=== PATIENT | male | born 1975 | race Two or more races ===

== ENCOUNTER 2018-05-12 21:21 | Emergency (ER) | payer OTHER ==
[~2018-05-12] VITALS: Ht 175.3 cm; Wt 70.3 kg
--- NOTE | 2018-05-12 21:50 | NUR ---
BIBRA FROM HOME C/O FEELING LIGHTHEADED AND NUMBNESS ON RIGHT ARM S/P USING COCAINE X2HR DRAW END HAND. BS 100. PT AAOX4, VSS. PT STS " I FEEL MUCH BETTER NOW ". DENIES CP, SOB, DIZZINESS, LIGHTHEADEDNESS, NUMBNESS/TINGLING SENSATION ON ALL EXTREMITIES. AWAITING EVAL BY ERMD & WILL CONT TO MONITOR.
[2018-05-12 23:07] LABS: BASOPHILS % (AUTO) 0.5 % (0.0-2.0); CALCIUM, SERUM 9.5 mg/dL (8.5-10.1); CARBON DIOXIDE 27 mmol/L (21-32); CHLORIDE 99 mmol/L (98-107); EOSINOPHILS % (AUTO) 3.9 % (0.0-6.0); GLUCOSE 107 mg/dL (74-106); HEMATOCRIT 43 % (39-51); HEMOGLOBIN 14.7 g/dL (13.5-17.5); LYMPHOCYTES # (AUTO) 0.6 /CMM (0.8-4.8); LYMPHOCYTES % (AUTO) 15.3 % (20.0-44.0); MEAN CORPUSCULAR HGB CONC 34 g/dl (31.0-36.0); MEAN CORPUSCULAR VOLUME 100 fL (80-96); MONOCYTES # (AUTO) 0.7 /CMM (0.1-1.30); MONOCYTES % (AUTO) 18.1 % (2.0-12.0); NEUTROPHILS # (AUTO) 2.4 /CMM (1.8-8.9); NEUTROPHILS % (AUTO) 62.2 % (43.0-81.0); PLATELET COUNT (AUTO) 222 /CMM (150-450); POTASSIUM 4.7 mmol/L (3.5-5.1); RED BLOOD CELL COUNT(AUTO) 4.32 MIL/uL (4.5-6.0); SODIUM SERUM 134 mmol/L (136-145); UREA NITROGEN, BLOOD 30 mg/dL (7-18); WHITE BLOOD COUNT (AUTO) 3.9 K/uL (4.3-11.0)
[2018-05-12 23:51] LABS: LYMPHOCYTES % (MANUAL) 16 % (16-48); MONOCYTES % (MANUAL) 13 % (0-11.0); NEUTROPHILS % (MANUAL) 71 (42-76)
[2018-05-13 00:13] VITALS: BP 145/87
--- NOTE | 2018-05-13 00:13 | NUR ---
Patient discharged to home in stable condition. Written and verbal after care instructions given. Patient verbalizes understanding of instruction. Pt ambulatory with a steady gait. AAOX4. Instructed not to drive, verbalized understanding.
== END 2018-05-13 00:14 | disposition home or self-care (01) ==
LOC: ER 21:25
DX: F14.10 Cocaine abuse, uncomplicated (principal); I51.7 Cardiomegaly; Z86.19 Personal history of other infectious and parasitic diseases
CPT/HCPCS: 36415; 80048-TC; 84484-TC; 85025-TC